=== PATIENT | male | born 1955 | race Caucasian/White ===

== ENCOUNTER 2017-07-02 07:11 | Emergency (ER) | payer BC ==
[2017-07-02] MEDS ORDERED: ValACYclovir (*) 1 GM TAB PO ONE (07:21)
[2017-07-02 07:40] VITALS: BP 154/87
--- NOTE | 2017-07-02 08:40 | UC ---
Aravind Hyde Stephanie, scribed for James Lopez MD on 07/02/17 at 0732 . Skin Complaint HPI - HPI Summary HPI Summary: The pt is a 62 y/o M presenting to with c/o rash over his back that began a few days ago. Symptoms include pain over the rash. The pt states he thinks he has shingles. - History of Current Complaint Time Seen by Provider: 07/02/17 07:16 Stated Complaint: RASH Hx Obtained From: Patient Onset/Duration: Sudden Onset, Lasting Days, Still Present Timing: Constant Current Severity: Mild Location: Other - back Character: Pain, Redness Aggravating Factor(s): Nothing Alleviating Factor(s): Nothing Associated Signs & Symptoms: Positive: Rash - Allergy/Home Medications Allergies/Adverse Reactions: Allergies Allergy/AdvReac Type Severity Reaction Status Date / Time No Known Allergies Allergy Verified 07/02/17 07:33 Review of Systems Constitutional: Negative Skin: Rash Eyes: Negative ENT: Negative Respiratory: Negative Cardiovascular: Negative Gastrointestinal: Negative Genitourinary: Negative Motor: Negative Neurovascular: Negative Musculoskeletal: Negative Neurological: Negative Is Patient Immunocompromised?: No All Other Systems Reviewed And Are Negative: Yes PMH/Surg Hx/FS Hx/Imm Hx Cardiovascular History: Hypertension, Other - HLD Other Cardiovascular History: None Other History Of: Negative For: Anticoagulant Therapy - Surgical History Surgical History: Yes Surgery Procedure, Year, and Place: 2010 RIGHT FOOT PLANTAR FACITIS [facility]. BILATERAL CARPAL TUNNEL REPAIR 2012,2013 [facility] - Social History Occupation: Retired Lives: With Family Alcohol Use: Daily Alcohol Amount: 10 BEERS/DAY Substance Use Type: None Smoking Status (MU): Never Smoked Tobacco Have You Smoked in the Last Year: No Physical Exam - Summary Physical Exam Summary: VITAL SIGNS: Reviewed. GENERAL: Patient is a well developed and nourished M who is lying comfortable in the stretcher. Patient is not in any acute respiratory distress. HEAD AND FACE: Normocephalic EYES: PERRLA, EOMI x 2. EARS: Hearing grossly intact. MOUTH: Oropharynx within normal limits. NECK: Supple, trachea is midline, no adenopathy, no JVD, no carotid bruit. CHEST: Symmetric, no tenderness at palpation LUNGS: Clear to auscultation bilaterally. No wheezing or crackles. CVS: Regular rate and rhythm, S1 and S2 present, no murmurs or gallops appreciated. ABDOMEN: Soft, non-tender. Bowel sounds are normal. No abdominal abnormal pulsations. EXTREMITIES: Full ROM in all major joints, no edema, no cyanosis or clubbing. NEURO: Alert and oriented x 3. No acute neurological deficits. Speech is normal and follows commands. SKIN: Dry and warm, vesicular rash under dermatome from back to R rib cage consistent with shingles Triage Information Reviewed: Yes Vital Signs: Initial Vital Signs Temp 97.9 F 07/02/17 07:35 Pulse 62 07/02/17 07:35 Resp 16 07/02/17 07:35 BP 154/87 07/02/17 07:35 Pulse Ox 97 07/02/17 07:35 Vital Signs Reviewed: Yes Course/Dx - Course Course Of Treatment: The pt is a 62 y/o M presenting to UC with c/o rash over his back that began a few days ago. Symptoms include pain over the rash. It seems patient has developed shingles. Patient was instructed to return to the urgent care or go to ER immediately if any of the symptoms return or worsens. Plan of care was discussed with the patient, and patient understands and agrees. All questions were answered to patient satisfaction. There were no further complaints or concerns. The patient was found to have increased BP in UC. The patient will follow up with PCP for better control of BP. - Differential Diagnoses - Skin Complaint Differential Diagnoses: Scabies, Urticaria, Varicella Zoster - Diagnoses Provider Diagnoses: shingles. elevated BP without dx of HTN Discharge - Sign-Out/Discharge Documenting (check all that apply): Discharge - Discharge Plan Condition: Stable Disposition: HOME Prescriptions: Valacyclovir HCl [Valtrex] 1,000 mg PO TID #21 tablet Patient Education Materials: Shingles (ED) Referrals: Priscila PASTRANA,Willis Truong [Primary Care Provider] - Additional Instructions: Take medications as indicated. F/U with PCP in days FOLLOW UP WITH YOUR PRIMARY CARE PROVIDER WITHIN ONE WEEK FOR HIGH BLOOD PRESSURE NOTED TODAY. RETURN TO URGENT CARE FOR ANY WORSENING OR NEW SYMPTOMS. - Billing Disposition and Condition Condition: STABLE Disposition: HOME The documentation as recorded by the Aravind nova Stephanie accurately reflects the service I personally performed and the decisions made by , James Lopez MD.
== END 2017-07-02 07:44 | disposition home or self-care (01) ==
LOC: UCEAST 07:11
DX: B02.9 Zoster without complications (principal); I10 Essential (primary) hypertension; E78.5 Hyperlipidemia, unspecified
CPT/HCPCS: 99212; A9270-GY; G0463

== ENCOUNTER 2022-04-18 10:45 | Observation (INO) ==
[2022-04-18 11:11] LABS: ABS Basophils 0.1 10^3/ul (0-0.2); ABS Eosinophils 0.1 10^3/ul (0-0.6); ABS Lymphocytes 1.8 10^3/ul (1.0-4.8); ABS Monocytes 0.7 10^3/ul (0-0.8); Eosinophil % 0.8 %; Hematocrit 52 % (42-52); Lymphocyte % 21.3 %; Mean Corpuscular HGB Conc 34 g/dL (31-36); Mean Corpuscular Hemoglobin 33 pg (27-31); Mean Corpuscular Volume 96 fL (80-94); Nucleated Red Blood Cells % 0.1; Platelet Count 271 10^3/uL (150-450); Red Blood Count 5.49 10^6 /uL (4.18-5.48); Red Cell Distribution Width 14 % (10-15); White Blood Count 8.6 10^3/uL (3.5-10.8)
[2022-04-18] MEDS ORDERED: Iodixanol (CONTRAST) 320 MG/ML 100 ML SDV IV ONE (11:12)
[2022-04-18 11:35] LABS: Activated Partial Thrombo Time 29.1 seconds (26.0-38.0); INR 1.03 (0.88-1.18)
[2022-04-18 11:58] LABS: Albumin 4.6 g/dL (3.2-5.2); Albumin/Globulin Ratio 1.8 (1-3); Calcium 9.8 mg/dL (8.6-10.3); Creatinine, Serum 0.87 mg/dL (0.67-1.17); Globulin 2.6 g/dL (2-4); HDL Cholesterol 59.2 mg/dL; Potassium 4.2 mmol/L (3.5-5.0); Total Bilirubin 1.5 mg/dL (0.2-1.0); Total Protein 7.2 g/dL (6.4-8.9)
[2022-04-18 18:25] LABS: Urine Appearance Clear; Urine Bilirubin Negative (Negative); Urine Blood Negative (Negative); Urine Color Yellow; Urine Glucose Negative (Negative); Urine Ketones Trace (Negative); Urine Nitrite Negative (Negative); Urine Protein Negative (Negative); Urine Urobilinogen Positive (Negative)
[2022-04-18 18:29] LABS: Urine Specific Gravity > 1.060 (1.002-1.030)
[2022-04-18] MEDS: Multivitamins/Minerals TAB PO SCH (18:31)
[2022-04-18] MEDS: Enoxaparin 40 MG/0.4 ML SYR SUBCUT SCH (18:31)
[2022-04-19] MEDS ORDERED: Sulfur Hexaflouride MICROSPHR 25 MG VIAL ONE (08:50)
[2022-04-19] MEDS: Multivitamins/Minerals TAB PO SCH (09:55)
[2022-04-19] MEDS: Enoxaparin 40 MG/0.4 ML SYR SUBCUT SCH (17:01)
[2022-04-19 17:09] VITALS: BP 145/76
== END 2022-04-19 18:50 | disposition home or self-care (01) ==
LOC: ED 10:45 → EDHOLD 10:45 → SUATTDRO 13:14 → MEDTELE 15:49
PROVIDERS: ADMIT Internal Medicine; ATTEND Internal Medicine Hematology & Oncology